=== PATIENT | female | born 1990 | race Caucasian/White ===

== ENCOUNTER 2017-06-03 12:37 | Outpatient (CLI) | payer OTHER ==
[~2017-06-03 12:37] MED LIST: NAPROSYN500 MG PO
[2017-06-03 13:04] VITALS: BP 150/106
[2017-06-03 13:22] VITALS: BP 134/74
[2017-06-03 13:34] VITALS: BP 123/67
[2017-06-03 13:46] LABS: EOSINOPHIL (%) 0.9 % (0-5); EOSINOPHIL COUNT 0.1 K/uL (0-0.3); HEMATOCRIT 37.3 % (36.0-46.0); IMMATURE GRANULOCYTE (%) 0.4 % (0.0-0.7); LYMPHOCYTE COUNT 1.1 K/uL (1.0-2.8); MCH 27.2 PG (29.0-34.0); MCV 82.5 FL (83-99); MEAN PLAT.VOLUME 10.6 uM^3 (9.5-12.4); MONOCYTE (%) 6.2 % (3-12); MONOCYTE COUNT 0.7 K/uL (0-0.8); NEUTROPHIL (%) 82.3 % (45-76); PLATELET COUNT 270 K/uL (156-360); RBC DIS.WIDTH-CV 12.7 % (11.8-14.6); RBC DIS.WIDTH-SD 38.2 % (39-53); RED BLOOD COUNT 4.52 M/uL (3.80-5.20)
[2017-06-03 13:49] VITALS: BP 132/73
[2017-06-03 14:04] VITALS: BP 120/69
[2017-06-03 14:11] LABS: ALKALINE PHOSPHATASE 109 IU/L (3-129); ANION GAP 10 MEQ/L (2-14); CHLORIDE 103 MEQ/L (99-109); GFR ESTIMATE (CALCULATED) > 59 mL/min/; GLUCOSE 88 mg/dL (70-99); POTASSIUM 3.9 MEQ/L (3.7-5.4); SAMPLE HEMOLYSIS CHECK 0; SAMPLE ICTERIC CHECK 0; SAMPLE LIPEMIA CHECK 0; SODIUM 134 MEQ/L (136-147); TOTAL BILIRUBIN 0.3 MG/DL (0.0-1.0); UREA NITROGEN (BUN) 7 mg/dL (9-23)
[2017-06-03 14:17] LABS: UR CREATININE CONCENTRATION 54.3 MG/DL
[2017-06-03 14:19] VITALS: BP 138/84
== END 2017-06-03 15:15 | disposition home or self-care (01) ==
LOC: LDRP-OP 12:37 → 2WEST 12:40 → LDRP-OP 09-25 10:35
PROVIDERS: Nurse Practitioner
DX: O13.3 Gestational [pregnancy-induced] hypertension without significant proteinuria, third trimester (principal); Z3A.32 32 weeks gestation of pregnancy; O36.5930 Maternal care for other known or suspected poor fetal growth, third trimester, not applicable or unspecified; O99.213 Obesity complicating pregnancy, third trimester
CPT/HCPCS: 59025; 80053; 82570; 84156; 85025; G0378

== ENCOUNTER 2017-07-07 12:38 | Inpatient (IN) | payer OTHER ==
[~2017-07-07] VITALS: Ht 167.6 cm; Wt 127.0 kg
[2017-07-07] VITALS (16 sets, daily range): BP systolic 128–166; BP diastolic 66–102
[2017-07-07 14:58] LABS: BASOPHIL (%) 0.2 % (0-1); EOSINOPHIL (%) 0.8 % (0-5); EOSINOPHIL COUNT 0.1 K/uL (0-0.3); HEMOGLOBIN 11.4 G/DL (11.9-15.5); IMMATURE GRANULOCYTE (%) 0.2 % (0.0-0.7); LYMPHOCYTE (%) 10.4 % (15-42); LYMPHOCYTE COUNT 1.4 K/uL (1.0-2.8); MCHC 32.6 G/DL (30.0-36.0); MCV 82.7 FL (83-99); MONOCYTE (%) 5.9 % (3-12); MONOCYTE COUNT 0.8 K/uL (0-0.8); NEUTROPHIL (%) 82.5 % (45-76); NEUTROPHIL COUNT 10.7 K/uL (1.8-6.4); PLATELET COUNT 270 K/uL (156-360); RBC DIS.WIDTH-CV 13.2 % (11.8-14.6); RBC DIS.WIDTH-SD 39.3 % (39-53); RED BLOOD COUNT 4.23 M/uL (3.80-5.20)
[2017-07-07 15:16] LABS: ALBUMIN 3.5 G/DL (3.2-4.8); ALKALINE PHOSPHATASE 132 IU/L (3-129); ALT (GPT) 10 IU/L (3-49); AST (GOT) 9 IU/L (2-34); CHLORIDE 101 MEQ/L (99-109); CREATININE 0.5 MG/DL (0.6-1.3); GFR ESTIMATE (CALCULATED) > 59 mL/min/; GLUCOSE 104 mg/dL (70-99); POTASSIUM 3.8 MEQ/L (3.7-5.4); SODIUM 132 MEQ/L (136-147); TOTAL BILIRUBIN 0.3 MG/DL (0.0-1.0); TOTAL PROTEIN 6.5 G/DL (6.4-8.3); UREA NITROGEN (BUN) 7 mg/dL (9-23); URIC ACID 3.8 mg/dL (3.1-9.2)
[2017-07-07 15:38] LABS: APPEARANCE CLEAR ((CLEAR)); BILIRUBIN NEGATIVE; BLOOD NEGATIVE; COLOR YELLOW ((YELLOW)); GLUCOSE (STRIP) NEGATIVE; KETONES 5; LEUKOCYTES SMALL; NITRITE NEGATIVE; PROTEIN (STRIP) NEGATIVE; SPECIFIC GRAVITY 1.008 (1.000-1.030); UROBILINOGEN 0.2 MG/DL (0.2-1.0)
[2017-07-07 15:44] LABS: BACTERIA RARE /HPF; EPITHELIAL CELLS RARE /HPF; MUCUS NONE SEEN /LPF; RED BLOOD CELLS 0-5 /HPF (0-5); UCUL ADDED? NO; WHITE BLOOD CELLS 0-5 /HPF (0-5)
[2017-07-07 15:51] LABS: COCAINE NEGATIVE (150 ng/mL); PHENCYCLIDINE NEGATIVE (25 ng/mL); THC CANNABINOIDS NEGATIVE (50 ng/mL)
[2017-07-07 15:52] LABS: AMPHETAMINE NEGATIVE (500 ng/mL); BARBITURATES NEGATIVE (200 ng/mL); BENZODIAZEPINES NEGATIVE (150 ng/mL); BUPRENORPHINE NEGATIVE (10 ng/mL); METHADONE NEGATIVE (200 ng/mL); METHAMPHETAMINE NEGATIVE (500 ng/mL); OPIATES (MORPHINE) NEGATIVE (100 ng/mL); OXYCODONE NEGATIVE (100 ng/mL); PROPOXYPHENE NEGATIVE (300 ng/mL); TRICYCLIC ANTIDEPRESSANTS NEGATIVE (300 ng/mL)
[2017-07-07] MEDS ORDERED: PRENATAL TABLE1 EAC3 PO (16:27)
[2017-07-08] VITALS (25 sets, daily range): BP systolic 115–167; BP diastolic 63–96
[2017-07-08] MEDS ORDERED: IBUPROFEN800 MG PO (18:36)
[2017-07-09 06:45] VITALS: BP 103/50
[2017-07-09 13:55] VITALS: BP 145/86
== END 2017-07-10 20:04 | disposition home or self-care (01) | DRG 775 ==
LOC: LDRP-OP 12:38 → 2WEST 12:39
PROVIDERS: Advanced Practice Midwife
PROC: 10907ZC Drainage of Amniotic Fluid, Therapeutic from Products of Conception, Via Natural or Artificial Opening (ICD-10-PCS; principal; 2017-07-08)
PROC: 10E0XZZ Delivery of Products of Conception, External Approach (ICD-10-PCS; principal; 2017-07-08)
PROC: 3E033VJ Introduction of Other Hormone into Peripheral Vein, Percutaneous Approach (ICD-10-PCS; principal; 2017-07-08)
PROC: 0U7C7ZZ Dilation of Cervix, Via Natural or Artificial Opening (ICD-10-PCS; principal; 2017-07-08)
PROC: 3E0P7VZ Introduction of Hormone into Female Reproductive, Via Natural or Artificial Opening (ICD-10-PCS; principal; 2017-07-08)
DX: O36.5930 Maternal care for other known or suspected poor fetal growth, third trimester, not applicable or unspecified (principal); O32.6XX0 Maternal care for compound presentation, not applicable or unspecified; O69.89X0 Labor and delivery complicated by other cord complications, not applicable or unspecified; O99.214 Obesity complicating childbirth; E66.9 Obesity, unspecified; Z68.41 Body mass index [BMI] 40.0-44.9, adult; O16.4 Unspecified maternal hypertension, complicating childbirth; O99.344 Other mental disorders complicating childbirth; F41.9 Anxiety disorder, unspecified; Z37.0 Single live birth; Z3A.37 37 weeks gestation of pregnancy; Z87.891 Personal history of nicotine dependence
CPT/HCPCS: 80053; 81003; 84550; 85025; 88305; G0378; J7120